=== PATIENT | female | born 1995 | race Two or more races ===

== ENCOUNTER 2022-03-29 23:21 | Inpatient (IN) | payer MEDICAID, OTHER ==
[~2022-03-29] VITALS: Ht 170.2 cm; Wt 61.2 kg
[2022-03-30] MEDS ORDERED: SODIUM CHLORIDE 0.9% 1,000 ML IV ONE (01:00)
[2022-03-30 01:25] LABS: CLARITY URINE CLEAR (CLEAR); COLOR URINE YELLOW (YELLOW); KETONES URINE NEGATIVE (NEGATIVE); LEUKOCYTE ESTERASE URINE 3+ (NEGATIVE); NITRITE URINE POSITIVE (NEGATIVE); OCCULT BLOOD URINE TRACE (NEGATIVE); PROTEIN URINE TRACE (NEGATIVE); SPECIFIC GRAVITY URINE 1.007 (1.005-1.030); UROBILINOGEN URINE 0.2 E.U./dL (0.2-1.0)
[2022-03-30 01:28] LABS: HEMATOCRIT. 33.5 % (36.0-48.0); MEAN CORPUSCULAR HEMOGLOBIN 25.6 pg (28.0-32.0); MEAN CORPUSCULAR VOLUME 77.7 fL (81.0-99.0); MEAN PLATELET VOLUME 7.6 fl (7.4-10.4); PLATELET 521 x1000/uL (130-400); RED BLOOD CELL COUNT 4.31 mill/uL (4.2-5.4); RED CELL DISTRIBUTION WIDTH 16.1 % (11.6-14.6)
[2022-03-30 01:32] LABS: CHLORIDE 102 mEq/L (98-107)
[2022-03-30 01:40] LABS: ETHANOL BLOOD < 10 mg/dL
[2022-03-30 01:48] LABS: *AMPHETAMINES SCREEN URINE NEGATIVE (NEGATIVE); *BARBITURATES SCREEN URINE NEGATIVE (NEGATIVE); *BENZODIAZEPINES SCREEN URINE NEGATIVE (NEGATIVE); *COCAINE SCREEN URINE NEGATIVE (NEGATIVE); CANNABINOID URINE SCREEN NEGATIVE (NEGATIVE); METHADONE URINE SCREEN NEGATIVE (NEGATIVE); OPIATES URINE SCREEN NEGATIVE (NEGATIVE); PHENCYCLIDINE URINE SCREEN NEGATIVE (NEGATIVE)
[2022-03-30] MEDS ORDERED: CEFTRIAXONE 1 G PREMIX 50 ML IV ONE (03:30)
[2022-03-30 03:43] LABS: PLATELET ESTIMATE INCREASED
[2022-03-30] MEDS ORDERED: ACETAMINOPHEN 325MG TABLET PO PRN ×2 (08:00)
[2022-03-30] MEDS ORDERED: MAGNESIUM/ALUMINUM HYDROXIDE/SIMETHICONE 30ML UDC PO PRN (08:00)
[2022-03-30] MEDS ORDERED: ONDANSETRON HCL 4MG/2ML INJ IV PRN (08:00)
[2022-03-30 10:00] VITALS: BP 116/81
[2022-03-30] MEDS: DEXT 5%/LACTATED RINGERS 1,000 ML IV SCH ×2 (16:43→21:18)
[2022-03-30 20:00] VITALS: BP 131/91
[2022-03-30] MEDS: CEFTRIAXONE 1,000 MG in DEXTROSE 5% WATER 50 ML IV SCH (21:16)
[2022-03-31] VITALS: BP 126/82
[2022-03-31 04:00] VITALS: BP 113/63
[2022-03-31 08:00] VITALS: BP 130/74
[2022-03-31 08:43] LABS: BASOPHILS % 0.7 % (0.0-2.0); EOSINOPHILS % 1.1 % (0.0-5.0); HEMATOCRIT. 34.3 % (36.0-48.0); HEMOGLOBIN. 10.9 g/dL (12.0-16.0); LYMPHOCYTES % 16.2 % (20.0-50.0); MEAN CORPUSCULAR HEMOGLOBIN 25.2 pg (28.0-32.0); MEAN CORPUSCULAR VOLUME 79.2 fL (81.0-99.0); MEAN PLATELET VOLUME 7.7 fl (7.4-10.4); MONOCYTES % 6.4 % (2.0-8.0); NEUTROPHILS % 75.6 % (40.0-76.0); PLATELET 493 x1000/uL (130-400); RED BLOOD CELL COUNT 4.34 mill/uL (4.2-5.4); RED CELL DISTRIBUTION WIDTH 16.4 % (11.6-14.6)
[2022-03-31 08:49] LABS: CHLORIDE 104 mEq/L (98-107)
[2022-03-31 12:00] VITALS: BP 109/72
[2022-03-31 16:00] VITALS: BP 117/81
[2022-03-31] MEDS: PRENATAL VIT/FE FUMARATE/FA TABLET PO SCH (16:30)
[2022-03-31 20:00] VITALS: BP 128/76
[2022-03-31] MEDS: CEFTRIAXONE 1,000 MG in DEXTROSE 5% WATER 50 ML IV SCH (22:00)
[2022-04-01] VITALS: BP 121/77
[2022-04-01 04:00] VITALS: BP 116/83
[2022-04-01 08:00] VITALS: BP 118/84
[2022-04-01] MEDS: PRENATAL VIT/FE FUMARATE/FA TABLET PO SCH (09:35)
[2022-04-01 12:00] VITALS: BP 100/124
[2022-04-01 16:00] VITALS: BP 114/74
[2022-04-01 20:00] VITALS: BP 107/76
[2022-04-01] MEDS: CEFTRIAXONE 1,000 MG in DEXTROSE 5% WATER 50 ML IV SCH (21:32)
[2022-04-02] VITALS: BP 103/73
[2022-04-02 04:00] VITALS: BP 116/68
[2022-04-02] MEDS: PRENATAL VIT/FE FUMARATE/FA TABLET PO SCH (09:36)
[2022-04-02 10:47] LABS: CHLORIDE 105 mEq/L (98-107)
[2022-04-02] MEDS: CEFAZOLIN 1000MG PREMIX 50 ML IV SCH (19:34)
[2022-04-02 20:00] VITALS: BP 123/81
[2022-04-03] VITALS: BP 134/82
[2022-04-03] MEDS: CEFAZOLIN 1000MG PREMIX 50 ML IV SCH ×3 (02:52→18:29)
[2022-04-03 04:00] VITALS: BP 122/87
[2022-04-03 07:11] LABS: CHLORIDE 104 mEq/L (98-107)
[2022-04-03] MEDS: PRENATAL VIT/FE FUMARATE/FA TABLET PO SCH (08:48)
[2022-04-03 20:00] VITALS: BP 119/78
[2022-04-03] MEDS: CEFTRIAXONE 1,000 MG in DEXTROSE 5% WATER 50 ML IV SCH (21:32)
[2022-04-04] VITALS: BP 124/85
[2022-04-04] MEDS: CEFAZOLIN 1000MG PREMIX 50 ML IV SCH (03:34)
[2022-04-04 04:00] VITALS: BP 119/77
[2022-04-04 08:00] VITALS: BP 123/77
[2022-04-04] MEDS: PRENATAL VIT/FE FUMARATE/FA TABLET PO SCH (09:00)
[2022-04-04] MEDS ORDERED: PNV1TABL76 MT (11:12)
[2022-04-04 11:32] VITALS: BP 121/88
[2022-04-04 12:00] VITALS: BP 121/88
== END 2022-04-04 12:15 | disposition home or self-care (01) | DRG 566 ==
LOC: ER 23:21 → 6EST 03-30 05:17 → ENRESERV 03-30 07:15
PROVIDERS: ADMIT Internal Medicine; ATTEND Internal Medicine
DX: O23.42 Unspecified infection of urinary tract in pregnancy, second trimester (principal); E88.09 Other disorders of plasma-protein metabolism, not elsewhere classified; O26.612 Liver and biliary tract disorders in pregnancy, second trimester; O99.322 Drug use complicating pregnancy, second trimester; F15.10 Other stimulant abuse, uncomplicated; D50.9 Iron deficiency anemia, unspecified; O99.012 Anemia complicating pregnancy, second trimester; O99.282 Endocrine, nutritional and metabolic diseases complicating pregnancy, second trimester; K80.20 Calculus of gallbladder without cholecystitis without obstruction; N39.0 Urinary tract infection, site not specified; B96.89 Other specified bacterial agents as the cause of diseases classified elsewhere; B96.20 Unspecified Escherichia coli [E. coli] as the cause of diseases classified elsewhere; Z3A.26 26 weeks gestation of pregnancy
CPT/HCPCS: 36415; 76705; 76805; 80053; 80305; 80320; 81003; 82962; 83036; 83735; 84100; 85025; 87077; 87186; 99285; J0690; J0696; J7030; J7060; G0480